=== PATIENT | male | born 1965 | race Caucasian/White ===

== ENCOUNTER → 2016-12-27 | Day surgery (SDC) | payer OTHER ==
[~2016-12-27] MED LIST: ADVAI500I PO; BUPIVACAINE HCL PF 0.75% 30 ML VIAL ONE; CLIN150 PO; CLINDAMYCIN PHOS 600 MG/4 ML VIAL ONE; LACTATED RINGER'S 1000 ML INJ 1,000 ML ONE; LIDOCAINE 1.5%/EPINEPHrine 1:200,000 PF SOLN 30 ML AMP ONE; MIDAZOLAM HCL 5 MG/ML VIAL (1 ML) ONE; MONT10TA2 PO; ONDANSETRON HCL 4 MG/2 ML VIAL IV PUSH ONE; PROPOFOL 200 MG/20 ML AMP IV ONE; SULF-154 PO; VENTAER INH; [UNRECOGNIZED DRUG - OTHER] IM
--- NOTE | 2016-12-28 06:53 | MP ---
cc: LINNETTE BUTT M.D. DATE OF SURGERY: 12/27/2016 PREOPERATIVE DIAGNOSIS: Right shoulder rotator cuff tear right shoulder impingement syndrome, right shoulder labral tear. POSTOPERATIVE DIAGNOSES Right shoulder rotator cuff tear right shoulder impingement syndrome, right shoulder labral tear. PROCEDURE Right shoulder arthroscopic rotator cuff repair, right shoulder arthroscopic subacromial decompression, right shoulder arthroscopic extensive debridement of SLAP labral tear. SURGEON Dr. Linnette Butt. INTELLIGENCE SPECIALIST: TOLU Machado ANESTHESIA General with interscalene block. REVIEW OF SYSTEMS Less 10 cc IMPLANTS USED: Arthrex JUSTIFICATION: This patient is a 51-year male who injured the right shoulder, he presents with pain, weakness regards to his condition failed conservative treatments. Clinical exam as well as MRI confirmed the above-named findings. The patient was counseled as to the risks, benefits and alternatives to the above-named surgical procedure. He did wish to proceed with surgery. PROCEDURE IN DETAIL: A written consent was obtained. The patient identified by name, taken to the operating room placed supine on the operating room table. General anesthesia was administered as well as 900 mg of IV clindamycin as he does have a Keflex allergy. The patient was carefully turned to the left lateral decubitus position. The lateral arm roll was placed all bony pounds and pressure as well padded. The patient neck's was carefully monitored and neutral. A arm aguillon was gently applied to the right upper extremity with 10 pounds of traction placed. The right shoulder prepped and draped using as alcohol, Hibiclens solution and DuraPrep solution. Standard posterior and anterior glenohumeral arthroscopic portal was established to the glenohumeral joint revealed evidence of labral tearing along the anterior posterior aspects. <<1:30>> portal and extensive debridement labrum was performed from 3 o'clock position up to the 12 o'clock position back down to 9 o'clock position there is minimal evidence of chondromalacia biceps origin was intact, there is evidence of full-thickness tear supraspinatus tendon is visualized from the glenohumeral joint which is also debrided. Attention turned to the subacromial space. There was evidence of impingement with bursitis. An arthroscopic shaver was introduced from the lateral port, a subacromial decompression was performed. The shaver used for extensive bursectomy. An arthroscopic Bur used for acromioplasty. Next, cautery device was used to release coracoacromial ligament. The bur was used to decorticate the greater tuberosity in preparation rotator cuff tendon repair an at this point two Arthrex 4.75 mm bio swivel lock anchors were inserted along the medial row. The Arthrex scorpion device was used shuttle number two fiber tape sutures through the anterior radio recorder portions of the tendon. #2 fiber link sutures placed along the anterior posterior portions as well. An Arthrex double row speed bridge construct was created with application of a posterolateral and anterolateral anchor after appropriate tensioning of sutures and insertion of lateral row anchors. The repair was probed, no evidence of instability or fixation at the conclusion of surgical procedure, the arthroscopic portals were closed 3-0 Prolene suture. Sterile dressing applied. The patient placed in sling swath immobilizer. The patient tolerated the procedure well with no intraoperative complications noted. Linnette Lozano physician radiology physician assistant certified was present during seizure to include patient positioning, he was medical necessity of physician radiology physician assistant indicated case due to complexity assisted with manipulation of the arm and also manipulation of the camera assisted with shuttling of sutures also implantation of suture anchors for purposes of rotator cuff tendon repair. MD DESHAWN Espinosa/roxy /9:56 AM /6:27 AM
== END | disposition home or self-care (01) ==
LOC: ESDC 07:13
PROVIDERS: ATTEND Orthopaedic Surgery Sports Medicine
DX: M75.121 Complete rotator cuff tear or rupture of right shoulder, not specified as traumatic (principal); M75.41 Impingement syndrome of right shoulder; S43.431A Superior glenoid labrum lesion of right shoulder, initial encounter
CPT/HCPCS: 01630; 01991; 29823; 29826; 29827; 64417; C1713; J2250; J2405; J7120